=== PATIENT | male | born 1955 | race Caucasian/White ===

== ENCOUNTER 2024-04-05 14:50 | Emergency (ER) | payer MEDICARE ==
[~2024-04-05] VITALS: Ht 172.7 cm; Wt 64.0 kg
[2024-04-05 15:00] VITALS: O2SAT 98
[2024-04-05 16:21] LABS: BASOPHILS % 0.7 % (0.0-2.0); EOSINOPHILS % 0.4 % (0.0-5.0); HEMATOCRIT. 34.6 % (42.0-52.0); HEMOGLOBIN. 11.6 g/dL (14.0-18.0); LYMPHOCYTES % 10.4 % (20.0-50.0); MEAN CORPUSCULAR HEMOGLOBIN 29.6 pg (28.0-32.0); MEAN CORPUSCULAR HGB CONC 33.5 g/dL (31.0-37.0); MEAN CORPUSCULAR VOLUME 88.3 fL (80.0-94.0); MEAN PLATELET VOLUME 8.3 fl (7.4-10.4); MONOCYTES % 13.9 % (2.0-8.0); NEUTROPHILS % 74.6 % (40.0-76.0); PLATELET 194 x1000/uL (130-400); RED BLOOD CELL COUNT 3.92 mill/uL (4.7-6.1); RED CELL DISTRIBUTION WIDTH 14.4 % (11.6-14.6); WHITE BLOOD COUNT 7.3 x1000/uL (4.5-11.0)
[2024-04-05 16:28] LABS: CHLORIDE 106 mEq/L (98-107); POTASSIUM 3.3 mEq/L (3.5-5.1); SODIUM 136 mEq/L (136-145)
[2024-04-05 16:29] LABS: CALCIUM 8.6 mg/dL (8.7-10.4); CARBON DIOXIDE 23 mEq/L (21-32)
[2024-04-05 16:34] LABS: CREATININE 0.7 mg/dL (0.6-1.3); GLUCOSE 91 mg/dL (70-105); UREA NITROGEN BLOOD 9 mg/dL (9-23)
[2024-04-05 16:36] LABS: ALANINE AMINOTRANSFERASE 10 IU/L (10-49); ALBUMIN 3.9 g/dL (3.2-4.8); ASPARTATE AMINOTRANSFERASE 16 IU/L (<34); BILIRUBIN DIRECT 0.2 mg/dL (<=3.0)
[2024-04-05 16:37] LABS: BILIRUBIN TOTAL 0.5 mg/dL (0.1-1.0); PROTEIN TOTAL 7.4 g/dL (6.0-8.3)
[2024-04-05 16:38] LABS: INR 1.1; PROTHROMBIN TIME 11.8 sec (9.6-11.0)
[2024-04-05 17:34] VITALS: TEMP 98.2
[2024-04-05] MEDS: POTASSIUM CHLORIDE 20MEQ/PACKET PO NR (18:03)
[2024-04-05] MEDS ORDERED: LIDOCAINE HCL 1% 20ML VIAL (Pyxis) INJ INFIL ONE (19:00)
[2024-04-05] MEDS ORDERED: POVIDONE-IODINE 10% TOPICAL SOLN 240ML TOP ONE (19:00)
[2024-04-05] MEDS ORDERED: IOHEXOL-300 100 ML BOTTLE ONE (20:05)
[2024-04-05] MEDS: KETOROLAC 15MG/ML VIAL IV NR (20:10)
[2024-04-05 20:19] VITALS: BP 161/90; PULSE 65; RESP 16
== END 2024-04-05 21:07 | disposition home or self-care (01) ==
LOC: ER 14:50
DX: S01.81XA Laceration without foreign body of other part of head, initial encounter (principal); Z98.890 Other specified postprocedural states; V87.8XXA Person injured in other specified noncollision transport accidents involving motor vehicle (traffic), initial encounter; Y93.89 Activity, other specified; Y92.89 Other specified places as the place of occurrence of the external cause; Y99.8 Other external cause status
CPT/HCPCS: 99285; 70450; 96374; 80076; 80048; 83690; 85025; 85610; 36415; 70486; 74177; 12014; Q9967; J1885; J3490